=== PATIENT | female | born 2000 | race African-American/Black ===

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

== ENCOUNTER 2020-03-18 18:22 | Emergency (ER) | payer MEDICAID, OTHER ==
[~2020-03-18] VITALS: Ht 165.1 cm; Wt 88.6 kg
[~2020-03-18 18:22] MED LIST changes: +CETI10TA24 PO; +PRED20TA PO
[2020-03-18 18:47] VITALS: BP 127/77
[2020-03-18 19:05] LABS: U PREG PATIENT NEGATIVE (NEG)
[2020-03-18 19:16] LABS: BASO % 1 % (0-3); EOS # 0.2 x10^3/uL (0.0-0.7); EOS % 3 % (0-3); HEMATOCRIT 44.8 % (36.0-47.0); LYMPH # 2.3 x10^3/uL (1.0-4.8); LYMPH % 30 % (24-48); MEAN CORPUSCULAR HEMOGLOBIN 31 pg (25-35); MEAN CORPUSCULAR HGB CONC 34 g/dL (31-37); MEAN CORPUSCULAR VOLUME 91 fL (79-100); MONO # 0.3 x10^3/uL (0.0-1.1); MONO % 4 % (0-9); NEUT # 4.7 x10^3/uL (1.8-7.7); NEUT % 62 % (31-73); PLATELET COUNT 172 x10^3/uL (140-400); RED BLOOD COUNT 4.92 x10^6/uL (3.50-5.40); RED CELL DISTRIBUTION WIDTH 13.7 % (11.5-14.5); WHITE BLOOD COUNT 7.6 x10^3/uL (4.0-11.0)
[2020-03-18] MEDS ORDERED: METR500T PO (19:41)
--- NOTE | 2020-03-18 19:42 | PHYS DOC ---
Past Medical History Past Medical History: No Pertinent History, Asthma Past Surgical History: Other Additional Past Surgical Histo: hernia repair Smoking Status: Never Smoker Alcohol Use: None Drug Use: None General Adult EDM: Chief Complaint: VAGINAL BLEEDING HPI: HPI: Patient is a 20 year old female who presents to the ED today complaining of vaginal bleeding that began on February 21, 2020. Patient denies any fever, abdominal pain, denies any chance she is . She has used 7 pads in 24 hours. Review of Systems: Review of Systems: Constitutional: Denies fever or chills. [] GI: Reports vaginal bleeding. Denies abdominal pain, nausea, vomiting, bloody stools or diarrhea. [] : Denies dysuria. [] Musculoskeletal: Denies back pain or joint pain. [] Integument: Denies rash. [] Neurologic: Denies headache, focal weakness or sensory changes. [] Psychiatric: Denies depression or anxiety. [] Heart Score: Risk Factors: Risk Factors: DM, Current or recent (<one month) smoker, HTN, HLP, family history of CAD, obesity. Risk Scores: Score 0 - 3: 2.5% MACE over next 6 weeks - Discharge Home Score 4 - 6: 20.3% MACE over next 6 weeks - Admit for Clinical Observation Score 7 - 10: 72.7% MACE over next 6 weeks - Early Invasive Strategies Allergies: Allergies: Allergies Coded Allergies Type Severity Reaction Last Updated Verified No Known Drug Allergies 06/02/14 No Physical Exam: PE: Constitutional: Well developed, well nourished, no acute distress, non-toxic appearance. [] Abdomen: Bowel sounds normal, soft, no tenderness, no masses, no pulsatile masses. [] Pelvic exam-external pelvic appears normal, cervix is visualized, closed, no CMT, no adnexal tenderness, trace amount of bright red blood noted in the vaginal vault Skin: Warm, dry, no erythema, no rash. [] Back: No tenderness, no CVA tenderness. [] Extremities: No tenderness, no cyanosis, no clubbing, ROM intact, no edema. [] Neurologic: Alert and oriented X 3, normal motor function, normal sensory function, no focal deficits noted. [] Psychologic: Affect normal, judgement normal, mood normal. [] Current Patient Data: Labs: Laboratory Tests Test 5/20/20 18:27 03/18/20 19:10 Urine Test Negative (NEG) White Blood Count 7.6 x10^3/uL (4.0-11.0) Red Blood Count 4.92 x10^6/uL (3.50-5.40) Hemoglobin 15.0 g/dL (12.0-15.5) Hematocrit 44.8 % (36.0-47.0) Mean Corpuscular Volume 91 fL (79-100) Mean Corpuscular Hemoglobin 31 pg (25-35) Mean Corpuscular Hemoglobin Concent 34 g/dL (31-37) Red Cell Distribution Width 13.7 % (11.5-14.5) Platelet Count 172 x10^3/uL (140-400) Neutrophils (%) (Auto) 62 % (31-73) Lymphocytes (%) (Auto) 30 % (24-48) Monocytes (%) (Auto) 4 % (0-9) Eosinophils (%) (Auto) 3 % (0-3) Basophils (%) (Auto) 1 % (0-3) Neutrophils # (Auto) 4.7 x10^3/uL (1.8-7.7) Lymphocytes # (Auto) 2.3 x10^3/uL (1.0-4.8) Monocytes # (Auto) 0.3 x10^3/uL (0.0-1.1) Eosinophils # (Auto) 0.2 x10^3/uL (0.0-0.7) Basophils # (Auto) 0.0 x10^3/uL (0.0-0.2) Laboratory Tests 03/18/20 19:10 Microbiology 03/18/20 Wet Prep - Final, Complete Vital Signs: Vital Signs Date Time Temp Pulse Resp B/P (MAP) Pulse Ox O2 Delivery O2 Flow Rate FiO2 03/18/20 18:47 98.5 65 18 127/77 (94) 97 Room Air 98.5 EKG: EKG: [] Radiology/Procedures: Radiology/Procedures: [] Course & Med Decision Making: Course & Med Decision Making Pertinent Labs and Imaging studies reviewed. (See chart for details) This is a 20-year-old female patient presented to the ED today complaining of vaginal bleeding that began on February 21, 2020. Negative urine hCG, wet prep noted for BV, discharged on Flagyl, hemoglobin is normal, WBC is normal, preliminary pelvic ultrasound is negative. Patient was discharged home, recom mended following up with an EMERGENCY VEHICLE DRIVER which was provided in the next 7 days. Jane Disclaimer: Jane Disclaimer: This electronic medical record was generated, in whole or in part, using a voice recognition dictation system. Departure Departure Impression: Primary Impression: Dysfunctional uterine bleeding Additional Impression: Bacterial vaginosis Disposition: HOME, SELF-CARE Condition: STABLE Referrals: DAVID MOSER MD (PCP) ROSA ISELA JUAREZ Jr, MD Follow-up in the next 1 to 2 weeks Patient Instructions: Bacterial Vaginosis, [id number], Uterine Bleeding, Dysfunctional, [id number] Additional Instructions: You were seen for dysfunctional uterine bleeding. Please consider following up with an EMERGENCY VEHICLE DRIVER in the next 1 to 2 weeks. Come back to the ED at any point symptoms worsen, he also have bacterial vaginosis, ensure you complete your antibiotics. Scripts Metronidazole (FLAGYL) 500 Mg Tablet 1 TAB PO BID, #14 TAB Prov: NORBERTO FERRARO APRN 03/18/20 NORBERTO FERRARO APRN March 18, 2020 19:42
[2020-03-18 19:50] LABS: BILIRUBIN,URINE NEGATIVE (NEG); NITRITE,URINE NEGATIVE (NEG); PH,URINE 5.5 (<5.0-8.0); PROTEIN,URINE 100 mg/dL (NEG-TRACE); UROBILINOGEN,URINE 0.2 mg/dL (0.2 mg/dL)
--- NOTE | 2020-03-18 19:51 | RAD ---
Transabdominal and transvaginal sonography of the pelvis Clinical indications: Vaginal bleeding since January. Transabdominal sonography: The uterus and ovaries are poorly visualized due to empty urinary bladder. No free fluid is seen. Therefore, transvaginal sonography will be performed. Transvaginal sonography: The longitudinal and AP and transverse dimensions of the uterus are 6.4 cm and 3.4 cm and 3.4 cm respectively. The endometrial canal measures 6 mm in thickness which is normal. No uterine fibroid is seen. No free fluid is evident. The left ovary measures 4.7 cm x 2.6 cm x 3.4 cm in size and is normal. Color Doppler flow is seen within the left ovary. The right ovary measures 2.7 cm and 4.1 cm and 3.0 cm in size and is normal. Color Doppler flow is seen within the right ovary. No adnexal mass is seen. IMPRESSION: Normal study. Electronically signed by: Adolfo Toledo MD (03/18/2020 7:48 PM) [facility] [place]
[2020-03-18 19:58] LABS: CLARITY,URINE HAZY; COLOR,URINE RED
[2020-03-18 20:01] LABS: RBC,URINE TNTC /HPF (0-2); SQUAMOUS EPITHELIAL CELL,UR MANY /LPF
[2020-03-18 20:02] LABS: BACTERIA,URINE MOD /HPF (0-FEW)
[2020-03-20 18:09] LABS: GC PROBE Positive (Negative)
== END 2020-03-18 19:47 | disposition home or self-care (01) ==
LOC: ER 18:22
DX: N93.8 Other specified abnormal uterine and vaginal bleeding (principal); N76.0 Acute vaginitis; B96.89 Other specified bacterial agents as the cause of diseases classified elsewhere; J45.909 Unspecified asthma, uncomplicated; Z98.890 Other specified postprocedural states
CPT/HCPCS: 76830; 76856; 81001; 81025; 85025; 87491; 87591; 99284; Q0111; 36415

== ENCOUNTER 2020-12-01 04:10 | Emergency (ER) | payer SELFPAY ==
[~2020-12-01] VITALS: Ht 165.1 cm; Wt 96.8 kg
[~2020-12-01 04:10] MED LIST changes: -CETI10TA24 PO; +CETI10TA74 PO; +METR500T PO
--- NOTE | 2020-12-01 04:56 | ED.ADGEN ---
Past Medical History Past Medical History: No Pertinent History, Asthma Past Surgical History: Other Additional Past Surgical Histo: hernia repair Smoking Status: Never Smoker Alcohol Use: None Drug Use: None General Adult EDM: Chief Complaint: VAGINAL BLEEDING HPI: HPI: Patient is a 20 year old female G0 coming in for heavy vaginal bleeding. Patient was started on control after being seen in the emergency department 1 year ago for the same thing. Says she has messed up on her control this month and forgotten some pills. Last estrogen pill was about 4 5 days ago. Patient states that she tried to take another one of them few days later. Says the bleeding started just over an hour prior to arrival and she bled a handful of clots into the toilet. Patient states she was worried but evaluated. Denies any lightheadedness, palpitations, shortness of breath. States she otherwise has been well with no recent illness. Denies any burning with urination or hematuria. Denies any vaginal itching or discharge. Unsure if she can be . Review of Systems: Review of Systems: All other systems within normal limits except for as noted in the HPI Allergies: Allergies: Allergies Coded Allergies Type Severity Reaction Last Updated Verified No Known Drug Allergies 06/02/14 No Physical Exam: PE: Constitutional: Well developed, well nourished, no acute distress, non-toxic appearance. [] HENT: Normocephalic, atraumatic, bilateral external ears normal, nose normal. [] Eyes: PERRLA, conjunctiva normal, no discharge. [] Neck: No rigidity, supple, no stridor. [] Cardiovascular: Regular rate and rhythm, brisk cap refill [] Lungs & Thorax: Non labored symmetric respirations, no tachypnea or respiratory distress [] Abdomen: Soft, nondistended. Skin: Warm, dry, no erythema, no rash. [] Back: Unremarkable Extremities: No deformities, range of motion grossly intact, no lower extremity edema [] Neurologic: Alert and oriented X 3, no focal deficits noted. [] Psychologic: Affect normal, judgement normal, mood normal. [] Current Patient Data: Labs: Laboratory Tests Test 12/01/20 04:37 POC Urine HCG, Qualitative Hcg negative (Negative) EKG: EKG: [] Heart Score: Risk Factors: Risk Factors: DM, Current or recent (<one month) smoker, HTN, HLP, family history of CAD, obesity. Risk Scores: Score 0 - 3: 2.5% MACE over next 6 weeks - Discharge Home Score 4 - 6: 20.3% MACE over next 6 weeks - Admit for Clinical Observation Score 7 - 10: 72.7% MACE over next 6 weeks - Early Invasive Strategies Radiology/Procedures: Radiology/Procedures: [] Course & Med Decision Making: Course & Med Decision Making Patient has completely normal vital signs including orthostatic vital signs. Bleeding has been short-term and per patient. Patient the blood volume is nothing to be significant enough to cause hemodynamic compromise. Patient's urine test is negative. Advised patient to wait 2 days and start her control pills to get her cycle back regulated. Dragon Disclaimer: Dragon Disclaimer: This electronic medical record was generated, in whole or in part, using a voice recognition dictation system. Departure Departure Impression: Primary Impression: Dysfunctional uterine bleeding Disposition: 01 DC HOME SELF CARE/HOMELESS Condition: STABLE Referrals: DAVID MOSER MD (PCP) Patient Instructions: Uterine Bleeding, Dysfunctional, [id number] Additional Instructions: . Use ibuprofen for cramping pain Follow-up with your primary care for further evaluation of vaginal bleeding and control DAKOTA SHEETS MD Dec 01, 2020 04:56
[2020-12-01 05:11] VITALS: BP 125/66
== END 2020-12-01 05:15 | disposition home or self-care (01) ==
LOC: ER 04:10
DX: N93.8 Other specified abnormal uterine and vaginal bleeding (principal); J45.909 Unspecified asthma, uncomplicated; Z98.890 Other specified postprocedural states
CPT/HCPCS: 81025; 99282

== ENCOUNTER 2021-07-21 14:56 | Emergency (ER) | payer SELFPAY ==
[~2021-07-21] VITALS: Ht 165.1 cm; Wt 86.0 kg
[~2021-07-21 14:56] MED LIST changes: +ERYT1OIN3 EACHEYE; -ERYT1OIN6 EACHEYE
[2021-07-21 15:21] VITALS: BP 137/67
--- NOTE | 2021-07-21 15:55 | RAD ---
XR SHOULDER_RIGHT 2+ VIEWS Clinical indications: Reason: pain after lifting a patient / Spl. Instructions: / History: Findings: No acute fracture or dislocation or osteolytic process is evident. There is widening of th e right AC joint measuring up to 11 mm. IMPRESSION: Grade 1 AC joint separation. Electronically signed by: Adolfo Toledo MD (07/21/2021 3:52 PM) [id number]
[2021-07-21] MEDS ORDERED: HYDR-2761 PO (16:31)
[2021-07-21] MEDS ORDERED: CYCL10TA2 PO (16:31)
[2021-07-21] MEDS ORDERED: NAPR500T8 PO (16:31)
[2021-07-21] MEDS ORDERED: METH4TAB2 PO (16:31)
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
== END 2021-07-21 16:58 | disposition home or self-care (01) ==
LOC: ER 14:56
DX: S43.101A Unspecified dislocation of right acromioclavicular joint, initial encounter (principal); J45.909 Unspecified asthma, uncomplicated; X50.9XXA Other and unspecified overexertion or strenuous movements or postures, initial encounter; X50.0XXA Overexertion from strenuous movement or load, initial encounter; Y93.89 Activity, other specified; Y92.128 Other place in nursing home as the place of occurrence of the external cause; Y99.0 Civilian activity done for income or pay
CPT/HCPCS: 73030; 99283

== ENCOUNTER 2022-01-11 11:34 | Emergency (ER) | payer SELFPAY ==
[~2022-01-11] VITALS: Ht 175.3 cm; Wt 100.0 kg
[~2022-01-11 11:34] MED LIST changes: +CYCL10TA19 PO; -CYCL10TA2 PO; +HYDR-2761 PO; +METH4TAB2 PO; +NAPR500T8 PO
[2022-01-11] MEDS ORDERED: IBUPROFEN 400 MG TABLET. PO ONE (12:00)
[2022-01-11] MEDS ORDERED: ACETAMINOPHEN 500 MG TABLET PO ONE (12:00)
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
--- NOTE | 2022-01-11 12:45 | RAD ---
EXAM: Left lower extremity venous and arterial Doppler sonogram. HISTORY: Pain and swelling. TECHNIQUE: Hoang scale and color Doppler sonographic evaluation of the left lower extremity veins and arteries with spectral waveform analysis was performed. FINDINGS: There is normal color flow, normal compressibility and there are normal spectral waveforms in the common femoral, superficial femoral, popliteal, posterior tibial and greater saphenous veins. There is an abnormal monophasic waveform within the left dorsalis pedis artery, favoring low flow due to hemodynamically significant proximal stenosis. There are normal triphasic waveforms and peak syst olic velocities throughout the remainder of the left lower extremity arteries. IMPRESSION: 1. No Doppler evidence of lower extremity deep venous thrombosis. 2. Suspected low flow within the left dorsalis pedis artery due to hemodynamically significant proxim al stenosis. No additional arterial stenosis or occlusion is seen. Electronically signed by: Mei Christian MD (01/11/2022 12:43 PM) [id number]
[2022-01-11 13:13] VITALS: BP 100/62
== END 2022-01-11 13:45 | disposition home or self-care (01) ==
LOC: ER 11:34
DX: R60.0 Localized edema (principal); J45.909 Unspecified asthma, uncomplicated
CPT/HCPCS: 93926; 93971; 99284-25

== ENCOUNTER 2022-02-03 23:13 | Emergency (ER) | payer SELFPAY ==
[~2022-02-03] VITALS: Ht 165.1 cm; Wt 81.8 kg
[2022-02-03 23:20] VITALS: BP 121/63
[2022-02-04 00:02] LABS: U PREG PATIENT NEGATIVE (NEG)
[2022-02-04 00:11] LABS: BACTERIA,URINE 0 /HPF (0-FEW); RBC,URINE TNTC /HPF (0-2); WBC,URINE 0 /HPF (0-4)
[2022-02-04] MEDS ORDERED: IBUP-1007 PO (00:55)
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
[2022-02-04] MEDS ORDERED: IBUPROFEN 400 MG TABLET. PO ONE (01:00)
== END 2022-02-04 01:07 | disposition home or self-care (01) ==
LOC: ER 23:13
DX: N92.0 Excessive and frequent menstruation with regular cycle (principal); J45.909 Unspecified asthma, uncomplicated
CPT/HCPCS: 81001; 81025; 99283